=== PATIENT | female | born 1945 | race Caucasian/White ===

== ENCOUNTER 2023-01-06 12:36 | Inpatient (IN) | payer MEDICARE, OTHER ==
[~2023-01-06] VITALS: Ht 160 cm; Wt 95.4 kg
[2023-01-06] MEDS ORDERED: LABETALOL HCL 5 MG/ML 20 ML VIAL IVP PRN ×2 (12:45)
[2023-01-06] MEDS ORDERED: LORazepam 2 MG/ML VIAL ONE (12:46)
[2023-01-06] MEDS ORDERED: LORazepam 2 MG/ML VIAL IM ONE (13:00)
[2023-01-06] MEDS ORDERED: IOHEXOL 350 MG/ML 100 ML VIAL ONE (13:12)
[2023-01-06] MEDS ORDERED: SODIUM CHLORIDE 0.9% 100 ML ONE (13:12)
[2023-01-06 13:22] LABS: BASOPHILS % (AUTO) 0.8 % (0.0-2.0); EOSINOPHILS % (AUTO) 1.5 % (1.0-6.0); HEMATOCRIT 36.1 % (36-46); HEMOGLOBIN 12.4 g/dL (12.0-16.0); LYMPHOCYTES # (AUTO) 2.3 K/uL (1.0-4.8); LYMPHOCYTES % (AUTO) 42.3 % (22.0-44.0); MEAN CORPUSCULAR HEMOGLOBIN 30.7 pg (26.0-34.0); MEAN CORPUSCULAR HGB CONC 34.2 G/dL (31.0-37.0); MEAN CORPUSCULAR VOLUME 90 fL (80-100); MONOCYTES # (AUTO) 0.3 K/uL (0.1-1.0); MONOCYTES % (AUTO) 5.5 % (2.0-9.0); NEUTROPHILS # (AUTO) 2.7 K/uL (1.8-7.7); NEUTROPHILS % (AUTO) 49.9 % (40.0-70.0); PLATELET COUNT (AUTO) 201 K/uL (150-450); RED BLOOD CELL COUNT(AUTO) 4.03 MIL/uL (4.00-5.20); RED CELL DISTRIBUTION WIDTH 13.4 % (11.5-14.5)
[2023-01-06 13:33] LABS: ANION GAP 7 mmol/L (8-16); CALCIUM, TOTAL 8.7 mg/dL (8.8-10.5); CARBON DIOXIDE 30 mmol/L (22-29); CHLORIDE 102 mmol/L (98-107); CREATININE 0.44 mg/dL (0.60-1.30); GLOMERULAR FILTR. RATE CALC > 60 mL/min (>60); GLUCOSE,RANDOM 93 mg/dL (70-110); POTASSIUM 3.9 mmol/L (3.5-5.1); SODIUM SERUM 139 mmol/L (136-145)
[2023-01-06 13:36] LABS: PROTHROMBIN TIME 10.3 SEC (9.4-11.6)
[2023-01-06 13:40] LABS: ALANINE AMINOTRANSFERASE 7 U/L (12-78); ALBUMIN 3.4 g/dL (3.4-5.0); ALKALINE PHOSPHATASE 89 U/L (46-116); ASPARTATE AMINOTRANSFERASE 18 U/L (15-37); BILIRUBIN,TOTAL 0.3 mg/dL (0.1-1.0); TOTAL PROTEIN, SERUM 7.1 g/dL (6.4-8.2)
[2023-01-06] MEDS ORDERED: SODIUM CHLORIDE 0.9% 1,000 ML IV ONE (13:45)
[2023-01-06 14:00] VITALS: O2SAT 98
[2023-01-06] MEDS ORDERED: CLON0.1T2 PO (14:55)
[2023-01-06] MEDS ORDERED: METO-558 PO (14:55)
[2023-01-06] MEDS ORDERED: KETO-108 OU (14:55)
[2023-01-06] MEDS ORDERED: CHOL25TA4 PO (14:55)
[2023-01-06] MEDS ORDERED: CARB-114 PO (14:55)
[2023-01-06] MEDS ORDERED: LEVE250T4 PO (14:55)
[2023-01-06] MEDS ORDERED: XALA2.5OS OU (14:55)
[2023-01-06] MEDS ORDERED: ALBU2SYR3 PO (14:55)
[2023-01-06] MEDS ORDERED: VENL-66 PO (14:55)
[2023-01-06] MEDS ORDERED: GABA-1216 PO (14:55)
[2023-01-06] MEDS ORDERED: LISI-894 PO (14:55)
[2023-01-06] MEDS ORDERED: ACET325S20 PR (14:55)
[2023-01-06] MEDS ORDERED: PRAM1TAB7 PO (15:05)
[2023-01-06] MEDS ORDERED: NITR0.4T50 SL (15:05)
[2023-01-06] MEDS ORDERED: METO50 PO (15:05)
[2023-01-06] MEDS ORDERED: CARB1TAB35 PO (15:05)
[2023-01-06] MEDS ORDERED: ACETAMINOPHEN 325 MG TABLET PO PRN (15:45)
[2023-01-06] MEDS ORDERED: BISACODYL 10 MG RECTAL RECTAL SUPPOSITORY PR PRN (15:45)
[2023-01-06] MEDS ORDERED: MORPHINE SULFATE 2 MG/ML SYRINGE IVP PRN (15:45)
[2023-01-06] MEDS ORDERED: ONDANSETRON HCL 4 MG/2 ML VIAL IVP PRN (15:45)
[2023-01-06] MEDS ORDERED: HydrALAZINE HCL 20 MG/ML VIAL IVP PRN (15:45)
[2023-01-06] MEDS ORDERED: ZOLPIDEM TARTRATE 5 MG TABLET PO PRN (15:45)
[2023-01-06] MEDS ORDERED: MAGNESIUM HYDROXIDE SUSPENSION 30 ML UDCUP PO PRN (15:45)
[2023-01-06] MEDS: GABAPENTIN 100 MG CAPSULE PO SCH ×2 (15:58→20:19)
[2023-01-06] MEDS: HEPARIN SODIUM,PORCINE 5,000 UNITS/ML VIAL SQ SCH (15:58)
[2023-01-06 16:09] LABS: APPEARANCE,URINE CLEAR (CLEAR); BILIRUBIN,URINE NEGATIVE (NEGATIVE); GLUCOSE, URINE (UA) NEGATIVE (NEGATIVE); KETONES,URINE NEGATIVE (NEGATIVE); LEUKOCYTE ESTERASE ,URINE NEGATIVE (NEGATIVE); NITRATE,URINE NEGATIVE (NEGATIVE); OCCULT BLOOD,URINE NEGATIVE (NEGATIVE); PROTEIN,URINE NEGATIVE (NEGATIVE); SPECIFIC GRAVITIY, URINE 1.017 (1.003-1.030); UROBILINOGEN,URINE <=1.0 mg/dL (<=1.0)
[2023-01-06] MEDS: CARBIDOPA/LEVODOPA 25-100 MG TABLET PO SCH ×2 (16:10→20:19)
[2023-01-06 16:16] LABS: AMPHET/METH SCREEN,URINE NEGATIVE (NEGATIVE); BARBITURATE SCREEN, URINE NEGATIVE (NEGATIVE); BENZODIAZEPINES SCREEN,URINE NEGATIVE (NEGATIVE); CANNABINOID SCREEN,URINE NEGATIVE (NEGATIVE); COCAINE SCREEN,URINE NEGATIVE (NEGATIVE); METHADONE SCREEN, URINE NEGATIVE (NEGATIVE); OPIATE SCREEN,URINE NEGATIVE (NEGATIVE); PHENCYCLIDINE SCREEN,URINE NEGATIVE (NEGATIVE)
[2023-01-06 16:33] LABS: BACTERIA,URINE None Seen /HPF (None Seen); RBC,URINE None Seen /HPF (0-2); WBC,URINE None Seen /HPF (0-5)
[2023-01-06] MEDS: DOCUSATE SODIUM 100 MG CAPSULE PO SCH (20:18)
[2023-01-06] MEDS: LISINOPRIL 20 MG TABLET PO SCH (21:52)
[2023-01-06] MEDS: METOPROLOL TARTRATE 50 MG TABLET PO SCH (21:52)
[2023-01-06 21:59] VITALS: BP 149/64; PULSE 82; RESP 22; TEMP 97.9
[2023-01-06] MEDS ORDERED: NYSTATIN 15 GM POWDER BOTTLE TP PRN (22:00)
[2023-01-06] MEDS: VENLAFAXINE HCL 37.5 MG ER CAPSULE PO SCH (22:42)
[2023-01-06] MEDS: LevETIRAcetam 250 MG TABLET PO SCH (22:42)
[2023-01-07] MEDS: HEPARIN SODIUM,PORCINE 5,000 UNITS/ML VIAL SQ SCH ×4 (00:05→17:50)
[2023-01-07 05:38] VITALS: BP 148/59; PULSE 70; RESP 20; TEMP 97.8
[2023-01-07 06:54] LABS: BASOPHILS % (AUTO) 0.8 % (0.0-2.0); EOSINOPHILS % (AUTO) 1.4 % (1.0-6.0); HEMATOCRIT 36.6 % (36-46); HEMOGLOBIN 12.7 g/dL (12.0-16.0); LYMPHOCYTES # (AUTO) 1.9 K/uL (1.0-4.8); LYMPHOCYTES % (AUTO) 31.7 % (22.0-44.0); MEAN CORPUSCULAR HGB CONC 34.5 G/dL (31.0-37.0); MEAN CORPUSCULAR VOLUME 90 fL (80-100); MONOCYTES # (AUTO) 0.3 K/uL (0.1-1.0); MONOCYTES % (AUTO) 5.5 % (2.0-9.0); NEUTROPHILS # (AUTO) 3.6 K/uL (1.8-7.7); NEUTROPHILS % (AUTO) 60.6 % (40.0-70.0); PLATELET COUNT (AUTO) 181 K/uL (150-450); RED BLOOD CELL COUNT(AUTO) 4.08 MIL/uL (4.00-5.20); RED CELL DISTRIBUTION WIDTH 13.5 % (11.5-14.5)
[2023-01-07 07:03] LABS: ANION GAP 6 mmol/L (8-16); CALCIUM, TOTAL 8.8 mg/dL (8.8-10.5); CARBON DIOXIDE 30 mmol/L (22-29); CHLORIDE 104 mmol/L (98-107); CREATININE 0.51 mg/dL (0.60-1.30); GLOMERULAR FILTR. RATE CALC > 60 mL/min (>60); GLUCOSE,RANDOM 88 mg/dL (70-110); POTASSIUM 3.4 mmol/L (3.5-5.1); SODIUM SERUM 140 mmol/L (136-145)
[2023-01-07 07:27] VITALS: BP 99/50; PULSE 68; RESP 18; TEMP 98
[2023-01-07] MEDS: GABAPENTIN 100 MG CAPSULE PO SCH ×3 (08:29→20:47)
[2023-01-07] MEDS: DOCUSATE SODIUM 100 MG CAPSULE PO SCH ×2 (08:29→20:47)
[2023-01-07] MEDS: HYDROCODONE/ACETAMINOPHEN 5-325 MG TABLET PO PRN ×3 (08:29→17:50)
[2023-01-07] MEDS: CHOLECALCIFEROL (VIT D3) 1,000 UNITS [25 MCG] TABLET PO SCH (08:29)
[2023-01-07] MEDS: PANTOPRAZOLE SODIUM 40 MG DR TABLET PO SCH (08:30)
[2023-01-07] MEDS: LevETIRAcetam 250 MG TABLET PO SCH ×2 (08:30→20:47)
[2023-01-07] MEDS: VENLAFAXINE HCL 37.5 MG ER CAPSULE PO SCH ×2 (08:30→20:47)
[2023-01-07] MEDS: CARBIDOPA/LEVODOPA 25-100 MG TABLET PO SCH ×4 (08:30→20:47)
[2023-01-07] MEDS: METOPROLOL TARTRATE 50 MG TABLET PO SCH (08:31)
[2023-01-07] MEDS: LISINOPRIL 20 MG TABLET PO SCH (08:31)
[2023-01-07] MEDS ORDERED: CloNIDine HCL 0.1 MG TABLET PO SCH (09:00)
[2023-01-07] MEDS ORDERED: POTASSIUM CHL 10 MEQ/WATER 50 ML IV PRN (11:00)
[2023-01-07] MEDS ORDERED: POTASSIUM CHLORIDE 20 MEQ ER TABLET PO PRN (11:00)
[2023-01-07 11:38] VITALS: BP 136/72; PULSE 61; RESP 18; TEMP 98
[2023-01-07 16:00] VITALS: BP 152/74; PULSE 74; RESP 18; TEMP 98
[2023-01-07 20:00] VITALS: BP 157/74; PULSE 84; RESP 20; TEMP 97.5
[2023-01-07] MEDS: METOPROLOL TARTRATE 25 MG TABLET PO SCH (20:47)
[2023-01-08 00:28] VITALS: BP 168/76; PULSE 84; RESP 20; TEMP 97.5
[2023-01-08] MEDS: HEPARIN SODIUM,PORCINE 5,000 UNITS/ML VIAL SQ SCH ×3 (00:28→16:49)
[2023-01-08 04:23] VITALS: BP 176/78; PULSE 78; RESP 18; TEMP 97.9
[2023-01-08 06:41] LABS: BASOPHILS % (AUTO) 0.6 % (0.0-2.0); EOSINOPHILS % (AUTO) 2.1 % (1.0-6.0); HEMATOCRIT 39.8 % (36-46); HEMOGLOBIN 13.1 g/dL (12.0-16.0); LYMPHOCYTES # (AUTO) 2.2 K/uL (1.0-4.8); LYMPHOCYTES % (AUTO) 41.3 % (22.0-44.0); MEAN CORPUSCULAR HEMOGLOBIN 29.5 pg (26.0-34.0); MEAN CORPUSCULAR VOLUME 89 fL (80-100); MONOCYTES # (AUTO) 0.3 K/uL (0.1-1.0); MONOCYTES % (AUTO) 4.8 % (2.0-9.0); NEUTROPHILS # (AUTO) 2.7 K/uL (1.8-7.7); NEUTROPHILS % (AUTO) 51.2 % (40.0-70.0); PLATELET COUNT (AUTO) 210 K/uL (150-450); RED BLOOD CELL COUNT(AUTO) 4.45 MIL/uL (4.00-5.20); RED CELL DISTRIBUTION WIDTH 13.9 % (11.5-14.5)
[2023-01-08 06:49] LABS: ANION GAP 3 mmol/L (8-16); CALCIUM, TOTAL 9.1 mg/dL (8.8-10.5); CARBON DIOXIDE 31 mmol/L (22-29); CHLORIDE 105 mmol/L (98-107); CREATININE 0.54 mg/dL (0.60-1.30); GLOMERULAR FILTR. RATE CALC > 60 mL/min (>60); GLUCOSE,RANDOM 99 mg/dL (70-110); POTASSIUM 3.2 mmol/L (3.5-5.1); SODIUM SERUM 139 mmol/L (136-145)
[2023-01-08 07:27] VITALS: BP 161/89; PULSE 98; RESP 19; TEMP 97.9
[2023-01-08] MEDS: DOCUSATE SODIUM 100 MG CAPSULE PO SCH (08:11)
[2023-01-08] MEDS: GABAPENTIN 100 MG CAPSULE PO SCH ×2 (08:11→16:48)
[2023-01-08] MEDS: PANTOPRAZOLE SODIUM 40 MG DR TABLET PO SCH (08:11)
[2023-01-08] MEDS: VENLAFAXINE HCL 37.5 MG ER CAPSULE PO SCH (08:12)
[2023-01-08] MEDS: HYDROCODONE/ACETAMINOPHEN 5-325 MG TABLET PO PRN ×3 (08:12→16:48)
[2023-01-08] MEDS: LevETIRAcetam 250 MG TABLET PO SCH (08:12)
[2023-01-08] MEDS: CARBIDOPA/LEVODOPA 25-100 MG TABLET PO SCH ×3 (08:12→16:48)
[2023-01-08] MEDS: CHOLECALCIFEROL (VIT D3) 1,000 UNITS [25 MCG] TABLET PO SCH (08:12)
[2023-01-08] MEDS: METOPROLOL TARTRATE 25 MG TABLET PO SCH (08:12)
[2023-01-08 08:37] LABS: CHOL/HDL RATIO 3.5 (3.9-5.7); CHOLESTEROL 229 mg/dL (131-200); HDL CHOLESTEROL 66 mg/dL (40-60); LDL CHOL (CALC.) 133 mg/dL (0-130); TRIGLYCERIDES 151 mg/dL (15-150)
[2023-01-08] MEDS ORDERED: LISINOPRIL 20 MG TABLET PO SCH (09:00)
[2023-01-08 11:46] VITALS: BP 124/56; PULSE 77; RESP 19; TEMP 98.6
[2023-01-08 15:25] VITALS: BP 118/63; PULSE 80; RESP 18; TEMP 98.6
[2023-01-08 19:42] VITALS: BP 153/85; PULSE 90; RESP 17; TEMP 98.4
== END 2023-01-08 20:40 | DRG 57 ==
LOC: EMS 12:37 → 5S 20:44
PROVIDERS: ADMIT Internal Medicine; ATTEND Internal Medicine
DX: G20 Parkinson's disease (principal); I16.1 Hypertensive emergency; I69.354 Hemiplegia and hemiparesis following cerebral infarction affecting left non-dominant side; G45.9 Transient cerebral ischemic attack, unspecified; J45.909 Unspecified asthma, uncomplicated; I10 Essential (primary) hypertension; E55.9 Vitamin D deficiency, unspecified; E66.01 Morbid (severe) obesity due to excess calories; G40.909 Epilepsy, unspecified, not intractable, without status epilepticus; E87.6 Hypokalemia; Z68.37 Body mass index [BMI] 37.0-37.9, adult; Z88.1 Allergy status to other antibiotic agents; Z88.2 Allergy status to sulfonamides; Z88.8 Allergy status to other drugs, medicaments and biological substances; Z79.899 Other long term (current) drug therapy
CPT/HCPCS: 70496; 70498; 71045; 80048; 80053; 80061; 80307; 81001; 82948; 83605; 84132; 84484; 85025; 85610; 85730; 86850; 86900; 86901; 87081; 92610; 93005; 97163; 99291; J0360; J1644; J2060; J3490; J7030; J7050; Q9967; 36415-L1; 36415-TC; 70450; 70450-TC